=== PATIENT | male | born 2000 ===

== ENCOUNTER 2024-05-31 14:06 | Emergency (ER) | payer SELFPAY ==
[~2024-05-31] VITALS: Ht 172.7 cm; Wt 68.0 kg
[2024-05-31] MEDS ORDERED: Diphth,Pertuss(Acell),Tet Vac 0.5 ML VIAL IM ONE (16:45)
[2024-05-31] MEDS ORDERED: Amoxicillin/Clavulanate K 875 MG Tab PO ONE (17:25)
[2024-05-31] MEDS ORDERED: AMOCLA875 PO (17:27)
[2024-05-31] MEDS ORDERED: Diltiazem HCl 5 MG / ML 5ML Vial ONE (18:00)
== END 2024-05-31 18:40 | disposition home or self-care (01) ==
LOC: ER 14:06
DX: S60.551A Superficial foreign body of right hand, initial encounter (principal); W45.8XXA Other foreign body or object entering through skin, initial encounter; Z23 Encounter for immunization
CPT/HCPCS: 10120; 73120; 90471; 90715; 99283-25; A9270